=== PATIENT | male | born 1960 | race Caucasian/White ===

== ENCOUNTER 2016-12-11 13:28 | Emergency (ER) | payer MEDICARE, OTHER ==
[2016-12-11 13:47] LABS: BASO % 0.3 % (0.2-1.2); EOS # 0.3 10_X3_uL (0.0-0.5); EOS % 3.5 % (0.8-7.0); GRAN # 5.5 10_X3_uL (1.8-5.4); GRAN % 70.6 % (34.0-67.9); HEMATOCRIT 39.1 % (40-51); HEMOGLOBIN 13.3 g/dL (13.7-17.5); LYMPH # 1.4 10_X3_uL (1.3-3.6); LYMPH % 18.7 % (21.8-53.1); MEAN CORPUSCULAR HEMOGLOBIN 31.1 pg (27.0-33.0); MEAN CORPUSCULAR VOLUME 91.4 fL (79-92); MEAN PLATELET VOLUME 9.7 fl (7.5-11.5); MONO # 0.5 10_X3_uL (0.3-0.8); MONO % 6.9 % (5.3-12.2); PLATELET COUNT 228 x10_3/uL (163-337); RED BLOOD COUNT 4.28 x10_6/uL (4.6-6.1); RED CELL DISTRIBUTION WIDTH 13.3 % (11.6-14.4); WHITE BLOOD COUNT 7.7 x10_3/uL (4.2-9.1)
[2016-12-11 14:04] LABS: ALBUMIN 4.8 gm/dL (3.4-5.0); ALKALINE PHOSPHATASE 80 U/L (50-136); ALT/SGPT 18 U/L (7.53-40.17); AST/SGOT 15 U/L (6.66-35.34); BLOOD UREA NITROGEN 13 mg/dL (7-18); CALCIUM 9.7 mg/dL (8.7-10.7); CARBON DIOXIDE 25 mmol/L (21-32); CREATINE KINASE 134 U/L (35-232); CREATININE 0.9 mg/dL (0.6-1.3); GLUCOSE,RANDOM 93 mg/dL (70-99); POTASSIUM 4.1 mmol/L (3.5-5.1); SODIUM 136 mmol/L (136-145); TOTAL PROTEIN 7.1 gm/dL (6.4-8.2)
== END 2016-12-11 14:36 | disposition home or self-care (01) ==
LOC: ER 13:28
PROVIDERS: Internal Medicine
DX: J44.9 Chronic obstructive pulmonary disease, unspecified (principal); R07.9 Chest pain, unspecified; I10 Essential (primary) hypertension; F17.210 Nicotine dependence, cigarettes, uncomplicated; Z79.02 Long term (current) use of antithrombotics/antiplatelets; Z79.82 Long term (current) use of aspirin
CPT/HCPCS: 36415; 71020; 80053; 82550; 82553; 85025; 93005; 94664; 99070; 99284; 99285-25